=== PATIENT | female | born 1960 | race Caucasian/White ===

== ENCOUNTER 2019-01-07 15:52 | Emergency (ER) | payer SELFPAY ==
[~2019-01-07] VITALS: Ht 170.2 cm; Wt 90.2 kg
[~2019-01-07 15:52] MED LIST: ACET-141 PO; IBUP-1561 PO
[2019-01-07 16:07] VITALS: BP 168/80; PULSE 78; RESP 16; Ht 170.2 cm; Wt 90.2 kg
== END 2019-01-07 17:22 | disposition home or self-care (01) ==
LOC: E/R 15:52
DX: S92.351A Displaced fracture of fifth metatarsal bone, right foot, initial encounter for closed fracture (principal); W19.XXXA Unspecified fall, initial encounter; Y92.9 Unspecified place or not applicable
CPT/HCPCS: 73630